=== PATIENT | female | born 1955 ===

== ENCOUNTER 2017-08-29 16:04 | Emergency (ER) | payer OTHER ==
[2017-08-29 16:52] VITALS: BP 127/73; PULSE 65; RESP 18; TEMP 97.9; O2SAT 99
--- NOTE | 2017-08-29 17:19 | PD ---
HPI Chief Complaint: Head Injury Time Seen by Provider: 17:05 Travel History International Travel<30 days: No Contact w/Intl Traveler<30days: No Traveled to known affect area: No History of Present Illness HPI 62-year-old [place] work at [employer], here with facial contusion and neck pain, after reaching up for some gloves on the wall when the clock on the wall fell and landed on her face. Patient denies epistaxis or loss of consciousness. She now complains of headache and pain at the bridge of the nose. She also complains of increasing neck pain since the incident. She denies any numbness, tingling, or weakness of the upper extremities. She has no other complaints. She has no known drug allergies. [facility] Social History Alcohol Use: No Tobacco Use: No Substance Use: No Allergies-Medications (Allergen,Severity, Reaction): Coded Allergies: No Known Allergies (Unverified , 08/29/17) Reported Meds & Prescriptions Reported Meds & Active Scripts Active Ibuprofen 600 Mg Tab 600 Mg PO Q6H PRN Reported Glucophage (Metformin HCl) 850 Mg Tab 850 Mg PO BIDPC Review of Systems Except as stated in HPI: all other systems reviewed are Neg General / Constitutional: No: Fever Eyes: No: Diploplia, Blurred Vision, Photophobia, Drainage, Redness, Foreign Body Sensation, Pain, Tearing, Blind Spots, Visual changes, Blindness HENT: Positive: Headaches, Neck Stiffness, Neck Pain, Other (Pain), No: Vertigo , Lightheadedness, Sore Throat, Rhinitis, Rhinorrhea, Congestion, Nosebleed, Masses, Gingival Bleeding, Dental Difficulties, Ear Discharge, Earache Cardiovascular: No: Chest Pain or Discomfort Respiratory: No: Shortness of Breath Gastrointestinal: No: Abdominal Pain Genitourinary: No: Dysuria Musculoskeletal: No: Pain Skin: No Rash Neurologic: No: Weakness Psychiatric: No: Depression Endocrine: No: Polydipsia Hematologic/Lymphatic: No: Easy Bruising Physical Exam Narrative GENERAL: Appears in mild to moderate distress per SKIN: Warm and dry. Normal color. Normal turgor. There is erythema to the bridge of the nose and lower forehead. There is no abrasion or open wound. No significant swelling is noted. HEAD: Patient has mild tenderness to the lower anterior forehead and bridge of the nose. EYES: Pupils equal and round. No scleral icterus. No injection or drainage. ENT: No nasal bleeding or discharge. Turbinates are normal. Septum is normal. Mucous membranes pink and moist. No dental injury. Pharynx is clear. Airways patent. NECK: Trachea midline. Patient complains of tenderness with palpation along the lower cervical spine, as well as palpation of the soft tissues. CT of the cervical spine is ordered. CARDIOVASCULAR: Regular rate and rhythm. RESPIRATORY: No accessory muscle use. Clear to auscultation. Breath sounds equal bilaterally. GASTROINTESTINAL: Abdomen soft, non-tender, nondistended. Hepatic and splenic margins not palpable. MUSCULOSKELETAL: Extremities without clubbing, cyanosis, or edema. No obvious deformities. NEUROLOGICAL: Awake and alert. No obvious cranial nerve deficits. Motor grossly within normal limits. Five out of 5 muscle strength in the arms and legs. Normal speech. PSYCHIATRIC: Appropriate mood and affect; insight and judgment normal. Data Data Last Documented VS Vital Signs Date Time Temp Pulse Resp B/P (MAP) Pulse Ox O2 Delivery O2 Flow Rate FiO2 08/29/17 16:52 97.9 65 18 127/73 (91) [address] Brain W/O Iv Contrast(Rout) (08/29/17 17:12) Ct Cerv Spine W/O Contrast (08/29/17 17:12) MDM Medical Decision Making Medical Screen Exam Complete: Yes Emergency Medical Condition: Yes Differential Diagnosis Workplace injury. Facial contusion. Nasal fracture. Head injury. Cervical sprain. Neck pain. Narrative Course Patient is medically stable at time of exam. CT of the head and neck is ordered. CT of the head and neck are both negative for acute findings per radiologist. Patient is given a prescription for ibuprofen 600 mg up to 4 times daily as needed #40 Patient is return to work without restrictions tomorrow. Patient can follow with Worker's Comp. if symptoms continue or worsen. Workers comp forms are completed. Diagnosis Primary Impression: Accident at workplace Additional Impressions: Contusion of face Qualified Codes: S00.83XA - Contusion of other part of head, initial encounter Contusion of nose, initial encounter Patient Instructions: Facial Contusion (ED), General Instructions, Nasal Contusion (ED) Departure Forms: Work Release Enter return to work date: Aug 30, 2017 Additional Instructions: CT of the head and neck are both negative for acute findings per radiologist. Patient is given a prescription for ibuprofen 600 mg up to 4 times daily as needed #40 Patient is return to work without restrictions tomorrow. Patient can follow with Worker's Comp. if symptoms continue or worsen. Workers comp forms are completed. Med/Other Pt SpecificInfo: Prescription(s) given Scripts Ibuprofen (Ibuprofen) 600 Mg Tab 600 MG PO Q6H Y for Pain/Inflammation, #40 TAB 0 Refills Prov: Mann Lainez MD 08/29/17 Disposition: 01 DISCHARGE HOME Condition: Stable Kirby [place] Aug 29, 2017 17:19
[2017-08-29] MEDS ORDERED: METF850 PO (17:36)
--- NOTE | 2017-08-29 18:05 | RADRPT ---
EXAM DATE/TIME: 08/29/2017 17:51 [facility] COMPARISON: No previous studies available for comparison. INDICATIONS : Clock fell on head. RADIATION DOSE: 50.88 CTDIvol (mGy) MEDICAL HISTORY : None SURGICAL HISTORY : None. ENCOUNTER: Initial ACUITY: 1 day PAIN SCALE: 6/10 LOCATION: cranial TECHNIQUE: Multiple contiguous axial images were obtained of the head. Using automated exposure control and adj ustment of the mA and/or kV according to patient size, radiation dose was kept as low as reasonably a chievable to obtain optimal diagnostic quality images. DICOM format image data is available electro nically for review and comparison. FINDINGS: CEREBRUM: The ventricles are normal for age. No evidence of midline shift, mass lesion, hemorrhage or acute in farction. No extra-axial fluid collections are seen. POSTERIOR FOSSA: The cerebellum and brainstem are intact. The 4th ventricle is midline. The cerebellopontine angle i s unremarkable. EXTRACRANIAL: The visualized portion of the orbits is intact. SKULL: The calvaria is intact. No evidence of skull fracture. CONCLUSION: Normal examination for a patient of this age. Yury Nath MD on August 29, 2017 at 18:01 Board Certified Radiologist. This report was verified electronically.
--- NOTE | 2017-08-29 18:13 | RADRPT ---
EXAM DATE/TIME: 08/29/2017 17:51 [facility] COMPARISON: No previous studies available for comparison. INDICATIONS : Clock fell on head. RADIATION DOSE: 41.58 CTDIvol (mGy) MEDICAL HISTORY : None SURGICAL HISTORY : None. ENCOUNTER: Initial ACUITY: 1 day PAIN SCALE: 0/10 LOCATION: neck TECHNIQUE: Volumetric scanning of the cervical spine was performed. Multiplanar reconstructions in the sagittal, coronal and oblique axial planes were performed. Using automated exposure control and adjustment o f the mA and/or kV according to patient size, radiation dose was kept as low as reasonably achievable to obtain optimal diagnostic quality images. DICOM format image data is available electronically f or review and comparison. FINDINGS: VERTEBRAE: Normal vertebral body height. ALIGNMENT: No evidence of subluxation. C2-C3: The bony spinal canal is normal in size. No evidence of disc bulge or herniation. The neural forami na are bilaterally patent. C3-C4: The bony spinal canal is normal in size. No evidence of disc bulge or herniation. The neural forami na are bilaterally patent. C4-C5: The bony spinal canal is normal in size. No evidence of disc bulge or herniation. The neural forami na are bilaterally patent. C5-C6: The bony spinal canal is normal in size. No evidence of disc bulge or herniation. The neural forami na are bilaterally patent. C6-C7: The bony spinal canal is normal in size. No evidence of disc bulge or herniation. The neural forami na are bilaterally patent. C7-T1: The bony spinal canal is normal in size. No evidence of disc bulge or herniation. The neural forami na are bilaterally patent. CONCLUSION: 1. Negative for acute traumatic injury in the cervical spine. Multinodular thyroid gland incompletely visualized. Yury Nath MD on August 29, 2017 at 18:08 Board Certified Radiologist. This report was verified electronically.
[2017-08-29] MEDS ORDERED: IBUP-232 PO (18:26)
== END 2017-08-29 18:28 | disposition home or self-care (01) ==
LOC: NEPK 16:04
DX: S00.83XA Contusion of other part of head, initial encounter (principal); S00.33XA Contusion of nose, initial encounter; M54.2 Cervicalgia; W20.8XXA Other cause of strike by thrown, projected or falling object, initial encounter; Y93.89 Activity, other specified
CPT/HCPCS: 70450; 72125; 99284